=== PATIENT | male | born 1960 | race African-American/Black ===

== ENCOUNTER 2022-12-22 21:52 | Emergency (ER) | payer BC ==
[~2022-12-22] VITALS: Ht 175.3 cm; Wt 139.0 kg
[2022-12-22] MEDS ORDERED: MORPHINE SULFATE 4 MG/ML CPJ (NOT FOR IM USE) IV ONE (22:45)
[2022-12-22 23:01] LABS: CHLORIDE 98 mEq/L (98-107); HEMATOCRIT. 29.6 % (42.0-52.0); HEMOGLOBIN. 9.6 g/dL (14.0-18.0); MEAN CORPUSCULAR VOLUME 79.8 fL (80.0-94.0); MEAN PLATELET VOLUME 6.7 fl (7.4-10.4); PLATELET 123 x1000/uL (130-400); RED BLOOD CELL COUNT 3.71 mill/uL (4.7-6.1); RED CELL DISTRIBUTION WIDTH 20.5 % (11.6-14.6)
[2022-12-22 23:04] LABS: INR 1.1; PROTHROMBIN TIME 11.8 sec (9.6-11.0)
[2022-12-22 23:31] LABS: NUCLEATED RED BLOOD CELLS 2 /100 WBC; PLATELET ESTIMATE DECREASED
[2022-12-23] MEDS ORDERED: FENTANYL CITRATE/PF 50MCG/ML 2ML VIAL IV ONE ×2 (01:00)
[2022-12-23] MEDS ORDERED: OXYC-105 PO ×2 (01:25→01:45)
[2022-12-23 03:33] VITALS: BP 147/54
== END 2022-12-23 03:35 | disposition home or self-care (01) ==
LOC: ER 22:24
DX: S42.301A Unspecified fracture of shaft of humerus, right arm, initial encounter for closed fracture (principal); I10 Essential (primary) hypertension; W18.30XA Fall on same level, unspecified, initial encounter; Y93.89 Activity, other specified; Y92.89 Other specified places as the place of occurrence of the external cause; Y99.8 Other external cause status
CPT/HCPCS: 24500; 36415; 73060; 73070; 73090; 80048; 85025; 85610; 86850; 86900; 86901; 96374; 99152; 99291; J2270; J3010; Z7610; L3670

== ENCOUNTER 2023-05-02 10:25 | Inpatient (IN) | payer BC ==
[~2023-05-02] VITALS: Ht 182.9 cm; Wt 124.4 kg
[~2023-05-02 10:25] MED LIST: OXYC-105 PO
[2023-05-02 10:31] VITALS: O2SAT 100
[2023-05-02] MEDS ORDERED: SODIUM CHLORIDE 0.9% 1,000 ML IV ONE (11:00)
[2023-05-02 11:31] LABS: CHLORIDE 113 mEq/L (98-107)
[2023-05-02 11:40] LABS: INR 1.1; PROTHROMBIN TIME 12.2 sec (9.6-11.0)
[2023-05-02 11:41] LABS: MEAN CORPUSCULAR HEMOGLOBIN 27.8 pg (28.0-32.0); MEAN CORPUSCULAR VOLUME 85.6 fL (80.0-94.0); MEAN PLATELET VOLUME 11.8 fl (7.4-10.4); RED BLOOD CELL COUNT 1.93 mill/uL (4.7-6.1); RED CELL DISTRIBUTION WIDTH 19.6 % (11.6-14.6)
[2023-05-02 11:54] LABS: HEMATOCRIT. 16.5 % (42.0-52.0); HEMOGLOBIN. 5.4 g/dL (14.0-18.0); PLATELET 19 x1000/uL (130-400)
[2023-05-02 12:15] LABS: NUCLEATED RED BLOOD CELLS 14 /100 WBC; PLATELET ESTIMATE MARKEDLY DECREASED
[2023-05-02] MEDS ORDERED: CEFTRIAXONE 1GM PREMIX 50 ML IV NR (13:45)
[2023-05-02] MEDS ORDERED: ONDANSETRON HCL 4MG/2ML INJ IV PRN (13:45)
[2023-05-02] MEDS ORDERED: ACETAMINOPHEN 325MG TABLET PO PRN (13:45)
[2023-05-02 17:06] VITALS: BP 109/64; PULSE 107; RESP 17; TEMP 99
[2023-05-02 17:21] VITALS: BP 109/64; PULSE 107; RESP 17; TEMP 99
[2023-05-02] MEDS ORDERED: MIRT-89 PO (17:40)
[2023-05-02] MEDS ORDERED: LABE200T9 PO (17:40)
[2023-05-02] MEDS ORDERED: MEMA5TAB42 PO (17:40)
[2023-05-02] MEDS ORDERED: SULF-13 PO (17:40)
[2023-05-02] MEDS ORDERED: PREG50CA PO (17:40)
[2023-05-02 20:00] VITALS: BP 121/76; PULSE 109; RESP 18; TEMP 98.5
[2023-05-02] MEDS: OXYCODONE HCL/ACETAMINOPHEN 5/325MG TABLET PO PRN (20:46)
[2023-05-02] MEDS: PREGABALIN 50 MG CAPSULE PO SCH (20:46)
[2023-05-02] MEDS: MIRTAZAPINE 15MG TABLET PO SCH (20:46)
[2023-05-02] MEDS: SULFAMETHOXAZOLE/TRIMETHOPRIM 800/160MG TABLET PO SCH (20:46)
[2023-05-02] MEDS: LABETALOL HCL 200MG TABLET PO SCH (20:47)
[2023-05-02 20:58] LABS: MEAN CORPUSCULAR HEMOGLOBIN 28.1 pg (28.0-32.0); MEAN CORPUSCULAR VOLUME 85.1 fL (80.0-94.0); MEAN PLATELET VOLUME 8.2 fl (7.4-10.4); RED BLOOD CELL COUNT 2.15 mill/uL (4.7-6.1)
[2023-05-02 21:10] LABS: HEMATOCRIT. 18.3 % (42.0-52.0)
[2023-05-02 21:11] LABS: PLATELET 17 x1000/uL (130-400)
[2023-05-02 21:45] LABS: NUCLEATED RED BLOOD CELLS 19 /100 WBC; PLATELET ESTIMATE MARKEDLY DECREASED
[2023-05-03] VITALS (20 sets, daily range): BP systolic 95–123; BP diastolic 53–71; PULSE 62–114; RESP 12–18; TEMP 97.1–99.6
[2023-05-03 06:26] LABS: MEAN CORPUSCULAR HEMOGLOBIN 29.3 pg (28.0-32.0); MEAN CORPUSCULAR VOLUME 87.1 fL (80.0-94.0); MEAN PLATELET VOLUME 8.2 fl (7.4-10.4); RED BLOOD CELL COUNT 2.27 mill/uL (4.7-6.1); RED CELL DISTRIBUTION WIDTH 18.1 % (11.6-14.6)
[2023-05-03 06:27] LABS: CHLORIDE 111 mEq/L (98-107)
[2023-05-03 07:57] LABS: HEMATOCRIT. 19.8 % (42.0-52.0); HEMOGLOBIN. 6.7 g/dL (14.0-18.0); PLATELET 19 x1000/uL (130-400)
[2023-05-03] MEDS: LABETALOL HCL 200MG TABLET PO SCH ×2 (08:43→21:43)
[2023-05-03] MEDS: SULFAMETHOXAZOLE/TRIMETHOPRIM 800/160MG TABLET PO SCH ×2 (08:43→21:42)
[2023-05-03] MEDS: MEMANTINE HCL 5MG TABLET PO SCH (08:43)
[2023-05-03] MEDS: PREGABALIN 50 MG CAPSULE PO SCH ×2 (08:43→17:00)
[2023-05-03] MEDS: OXYCODONE HCL/ACETAMINOPHEN 5/325MG TABLET PO PRN ×2 (09:30→21:43)
[2023-05-03 11:17] LABS: NUCLEATED RED BLOOD CELLS 13 /100 WBC; PLATELET ESTIMATE MARKEDLY DECREASED
[2023-05-03] MEDS: CEFTRIAXONE 1,000 MG in DEXTROSE 5% WATER 50 ML IV SCH (17:00)
[2023-05-03 17:16] LABS: HEMATOCRIT 22.7 % (42.0-52.0); HEMOGLOBIN 7.4 g/dL (14.0-18.0)
[2023-05-03] MEDS: MIRTAZAPINE 15MG TABLET PO SCH (21:43)
[2023-05-04] VITALS: BP 106/61; PULSE 100; RESP 18; TEMP 97.6
[2023-05-04 04:00] VITALS: BP 106/65; PULSE 108; RESP 16; TEMP 97.9
[2023-05-04] MEDS: OXYCODONE HCL/ACETAMINOPHEN 5/325MG TABLET PO PRN ×3 (06:40→21:25)
[2023-05-04 08:00] VITALS: BP 110/65; PULSE 108; RESP 16; TEMP 97.9
[2023-05-04] MEDS ORDERED: NALOXONE HCL 0.4MG/ML VIAL IV PRN (08:00)
[2023-05-04] MEDS: PREGABALIN 50 MG CAPSULE PO SCH ×2 (10:46→20:03)
[2023-05-04] MEDS: SULFAMETHOXAZOLE/TRIMETHOPRIM 800/160MG TABLET PO SCH ×2 (10:46→21:24)
[2023-05-04] MEDS: LABETALOL HCL 200MG TABLET PO SCH ×2 (10:46→21:00)
[2023-05-04] MEDS: MEMANTINE HCL 5MG TABLET PO SCH (10:47)
[2023-05-04 12:00] VITALS: BP 110/65; PULSE 113; RESP 20; TEMP 97.9
[2023-05-04] MEDS: CEFTRIAXONE 1,000 MG in DEXTROSE 5% WATER 50 ML IV SCH (14:00)
[2023-05-04 16:00] VITALS: BP 118/67; PULSE 108; RESP 15; TEMP 98.7
[2023-05-04 17:31] LABS: HEMOGLOBIN. 7.8 g/dL (14.0-18.0); MEAN CORPUSCULAR HEMOGLOBIN 28.5 pg (28.0-32.0); MEAN CORPUSCULAR VOLUME 87.3 fL (80.0-94.0); MEAN PLATELET VOLUME 8.6 fl (7.4-10.4); RED BLOOD CELL COUNT 2.75 mill/uL (4.7-6.1); RED CELL DISTRIBUTION WIDTH 17.8 % (11.6-14.6)
[2023-05-04 17:33] LABS: CHLORIDE 112 mEq/L (98-107)
[2023-05-04 17:42] LABS: PLATELET 18 x1000/uL (130-400)
[2023-05-04 20:00] VITALS: BP 108/68; PULSE 122; RESP 20; TEMP 99.2
[2023-05-04 21:16] LABS: NUCLEATED RED BLOOD CELLS 2 /100 WBC; PLATELET ESTIMATE MARKEDLY DECREASED
[2023-05-04] MEDS: MIRTAZAPINE 15MG TABLET PO SCH (21:26)
[2023-05-05] VITALS (10 sets, daily range): BP systolic 107–146; BP diastolic 57–92; PULSE 108–122; RESP 16–20; TEMP 98.7–99.5
[2023-05-05] MEDS: OXYCODONE HCL/ACETAMINOPHEN 5/325MG TABLET PO PRN (09:22)
[2023-05-05] MEDS: PREGABALIN 50 MG CAPSULE PO SCH (09:22)
[2023-05-05] MEDS: SULFAMETHOXAZOLE/TRIMETHOPRIM 800/160MG TABLET PO SCH (09:22)
[2023-05-05] MEDS: LABETALOL HCL 200MG TABLET PO SCH (09:23)
[2023-05-05] MEDS: MEMANTINE HCL 5MG TABLET PO SCH (09:23)
[2023-05-05 12:31] LABS: CHLORIDE 112 mEq/L (98-107)
[2023-05-05] MEDS: CEFTRIAXONE 1,000 MG in DEXTROSE 5% WATER 50 ML IV SCH (14:31)
[2023-05-05 15:04] LABS: MEAN CORPUSCULAR HEMOGLOBIN 28.7 pg (28.0-32.0); MEAN CORPUSCULAR VOLUME 86.4 fL (80.0-94.0); MEAN PLATELET VOLUME 8.3 fl (7.4-10.4); RED BLOOD CELL COUNT 2.36 mill/uL (4.7-6.1); RED CELL DISTRIBUTION WIDTH 17.7 % (11.6-14.6)
[2023-05-05 15:15] LABS: HEMOGLOBIN. 6.8 g/dL (14.0-18.0)
[2023-05-05 15:16] LABS: HEMATOCRIT. 20.4 % (42.0-52.0); PLATELET 41 x1000/uL (130-400)
[2023-05-05 22:45] LABS: NUCLEATED RED BLOOD CELLS 9 /100 WBC; PLATELET ESTIMATE MARKEDLY DECREASED
== END 2023-05-05 16:25 | disposition home or self-care (01) | DRG 811 ==
LOC: ER 10:25 → 3WST 13:14
PROVIDERS: ADMIT Internal Medicine; ATTEND Internal Medicine
PROC: 30233R1 Transfusion of Nonautologous Platelets into Peripheral Vein, Percutaneous Approach (ICD-10-PCS; principal; 2023-05-02)
PROC: 30233N1 Transfusion of Nonautologous Red Blood Cells into Peripheral Vein, Percutaneous Approach (ICD-10-PCS; 2023-05-02)
DX: D64.9 Anemia, unspecified (principal); E43 Unspecified severe protein-calorie malnutrition; D69.6 Thrombocytopenia, unspecified; G90.8 Other disorders of autonomic nervous system; E66.9 Obesity, unspecified; I10 Essential (primary) hypertension; I95.9 Hypotension, unspecified; Z68.37 Body mass index [BMI] 37.0-37.9, adult; Z85.46 Personal history of malignant neoplasm of prostate; Z92.21 Personal history of antineoplastic chemotherapy; Z71.3 Dietary counseling and surveillance; Z88.8 Allergy status to other drugs, medicaments and biological substances
CPT/HCPCS: 36415; 71045; 71250; 80048; 80053; 85014; 85018; 85025; 85049; 86850; 86900; 86920; 93005; 99291; J0696; J7030; J7060; P9016; P9034